=== PATIENT | female | born 1970 | race Hispanic/Latino ===

== ENCOUNTER 2019-10-31 08:23 | Emergency (ER) | payer BC ==
[~2019-10-31] VITALS: Ht 165.1 cm; Wt 58.5 kg
--- OUTSIDE RECORDS SUMMARY | 2019-10-31 08:26 | XMS REPORT ---
Author Author [facility] Address Unknown Phone Unavailable Care Team Providers Care [employer] Name Role Phone Unavailable Unavailable Problems This patient has no known problems. Allergies, Adverse Reactions, Alerts This patient has no known allergies or adverse reactions. Medications This patient has no known medications. Encounters Start Date/Time End Date/Time Encounter Type Admission Type Attending [facility] Facility Care Department Encounter ID 2019-08-15 12:35:00 2019-08-15 12:35:00 Emergency E [id number]
[2019-10-31] MEDS ORDERED: KETOROLAC TROMETHAMINE 30 MG/ML VIAL IM STA (08:40)
[2019-10-31] MEDS ORDERED: KETOROLAC TROMETHAMINE 30 MG/ML VIAL ONE (08:52)
--- NOTE | 2019-10-31 10:16 | Diagnostic Imaging Report ---
EXAMINATION: RIBS UNILAT W/CXR- HOPD INDICATION: Fall, chest pain. COMPARISON: None FINDINGS: TUBES and LINES: None. LUNGS: Lungs are well inflated. There is no evidence of pneumonia or pulmonary edema. PLEURA: No pleural effusion or pneumothorax. HEART AND MEDIASTINUM: The cardiomediastinal silhouette is unremarkable. BONES AND SOFT TISSUES: There is a mildly displaced right distal clavicle fracture, with approximately 0.5 cm of displacement. The fracture may be partially corticated. The acromion is not well assessed. No evidence of right-sided rib fracture. UPPER ABDOMEN: No free air under the diaphragm. There are cholecystectomy clips. IMPRESSION: Mildly displaced right distal clavicle fracture; given cortication, this may be remote. Suggest clinical correlation and dedicated clavicle/shoulder radiographs if clinically indicated. No evidence of right-sided rib fracture. Clear lungs. Signed by: Dr. Shana Fernandez MD on 10/31/2019 10:13 AM
[2019-10-31 10:28] VITALS: BP 138/78
--- NOTE | 2019-10-31 11:00 | Diagnostic Imaging Report ---
Exam: Right shoulder radiographs-3 views History: Fall, chest pain. Comparison: Chest radiograph 10/31/2019. Findings/Impression: No evidence of acromioclavicular separation. Glenohumeral alignment is maintained without dislocation. There is a mildly displaced right distal clavicle fracture, with approximately 0.5 cm of displacement. The fracture may be partially corticated, suggestive of age indeterminate trauma. There is bony enlargement at the distal clavicle which may represent sequela of remote trauma versus prior avulsion fracture. No significant overlying edema. Recommend clinical correlation. Follow-up radiographs or CT of the right shoulder may be considered for further evaluation. Signed by: Dr. Shana Fernandez MD on 10/31/2019 10:57 AM
== END 2019-10-31 10:45 | disposition home or self-care (01) ==
LOC: FSED 08:23
DX: S42.031A Displaced fracture of lateral end of right clavicle, initial encounter for closed fracture (principal); S22.31XA Fracture of one rib, right side, initial encounter for closed fracture; W18.2XXA Fall in (into) shower or empty bathtub, initial encounter; Y93.E1 Activity, personal bathing and showering; Y92.008 Other place in unspecified non-institutional (private) residence as the place of occurrence of the external cause
CPT/HCPCS: 71101; 73030; 99283; J1885